=== PATIENT | female | born 1970 | race Caucasian/White ===

== ENCOUNTER 2018-12-06 05:36 | Inpatient (IN) | payer BC ==
[~2018-12-06] VITALS: Ht 172.7 cm; Wt 92.8 kg
[2018-12-07 06:44] VITALS: BP 106/66
== END 2018-12-07 13:42 | disposition home or self-care (01) | DRG 470 ==
LOC: ORIP 05:36 → 4NOR 10:36 → DCLOUNGE 12-07 13:33
PROVIDERS: ADMIT Orthopaedic Surgery; ATTEND Orthopaedic Surgery
PROC: 0SR90JZ Replacement of Right Hip Joint with Synthetic Substitute, Open Approach (ICD-10-PCS; principal; 2018-12-06)
DX: M16.11 Unilateral primary osteoarthritis, right hip (principal); Z88.2 Allergy status to sulfonamides; Z87.442 Personal history of urinary calculi
CPT/HCPCS: 36415; 73501; J3490; 80053; 81025; 86850; 86900; C1713; G0378; J0171; J0690; J1100; J1170; J1885; J2250; J2274; J2704; J2795; J3010; J3370; Q0162; C1776; J0330; J2060; J2270; J7120